=== PATIENT | female | born 1950 | race Caucasian/White ===

== ENCOUNTER → 2016-10-21 | Outpatient (CLI) | payer BC ==
[~2016-10-21] MED LIST: ASA CHILDREN'S81 MG PO; ATIVAN0.5 MG PO; B COMPLEX1 EACH PO; CALCIUM600 MG PO; DAILY MULTIPLE1 EAC1 PO; LEVOTHYROXINE50 MCG PO; MAALOX DPS30 ML PO; NORCO 5-325 TA1 EACH PO; OXY IR DPS5 MG PO; POTASSIUM99 M1 PO; PRILOSEC DPS20 MG PO; PRO-AIR HFA IH; PROTONIX40 MG PO; PROVENTIL HFA6.7 GM IH; SURFAK240 MG PO; THERA-M1 EACH PO; TYLENOL325 MG PO; ULTRAM DPS50 MG PO; XARELTO10 MG PO
== END | disposition home or self-care (01) ==
LOC: RAD.S 10:27
DX: Z12.31 Encounter for screening mammogram for malignant neoplasm of breast (principal); Z80.3 Family history of malignant neoplasm of breast